=== PATIENT | female | born 1985 | race Caucasian/White ===

== ENCOUNTER → 2023-08-10 13:35 | Outpatient (CLI) | payer OTHER, SELFPAY ==
--- NOTE | ~2023-08-10 | MM_ITS ---
EXAMINATION: MM screening [facility] BI w ovidio HISTORY: Baseline screening mammogram TECHNIQUE: Craniocaudal and mediolateral oblique 3-D tomosynthesis images were obtained and synthetic 2-D images were generated. CAD analysis was submitted and interpreted. COMPARISON: None, baseline BREAST PARENCHYMAL COMPOSITION: There are scattered areas of fibroglandular density. FINDINGS: RIGHT BREAST: No suspicious mass, calcification, or architectural distortion are identified to sugges t malignancy. LEFT BREAST: There is a possible obscured mass in the middle third of the inner breast approximately 6 cm from the nipple. IMPRESSION: 1. Possible left breast mass. 2. Additional mammographic views and possible breast ultrasound are recommended to evaluate a possibl e left breast mass and establish a baseline given that this is the first mammographic examination. BI-RADS Category 0: Incomplete: Needs additional imaging evaluation. Reviewed, dictated and finalized at location A. CARE ATTENDANT IMPRESSION: 1. Possible left breast mass. 2. Additional mammographic views and possible breast ultrasound are recommended to evaluate a possible left breast mass and establish a baseline given that th is is the first mammographic examination. BI-RADS Category 0: Incomplete: Needs additional imaging evaluation.
== END ==
PROVIDERS: PCP Nurse Practitioner; Visit Provider Nurse Practitioner
DX: Z12.31 Encounter for screening mammogram for malignant neoplasm of breast (principal); R92.8 Other abnormal and inconclusive findings on diagnostic imaging of breast
CPT/HCPCS: 77063; 77067

== ENCOUNTER → 2023-08-31 08:32 | Outpatient (CLI) | payer OTHER, SELFPAY ==
--- NOTE | ~2023-08-31 | MMUS_ITS ---
EXAMINATION: MM diagnostic kush LT w oivdio, US breast LT limited HISTORY: Possible left breast mass reported on 08/10/2023 screening mammogram examination TECHNIQUE: Additional 3-D tomosynthesis images of the left breast were performed and synthetic 2-D im ages were generated. CAD analysis was submitted and interpreted. High resolution upper inner quadrant left breast ultrasound was performed. COMPARISON: 08/10/2023 bilateral screening mammogram FINDINGS: MAMMOGRAPHIC FINDINGS: Asymmetric approximately 6 x 9 mm partially circumscribed opacity is suggested in the upper inner christian drant of the left breast. Targeted upper inner quadrant left breast ultrasound examination was perfor med and is reported below. ULTRASOUND: 11:00 5 cm from nipple: Parallel circumscribed approximately 4.5 x 10.5 mm hypoechoic lesion without internal vascularity is noted. There is some posterior shadowing. The circumscribed margins and paral lel orientation and lack of internal vascularity would be suggestive of benign process but the coke worker ior shadowing is of concern. Ultrasound-guided biopsy is therefore recommended. IMPRESSION: 1. Posteriorly shadowing 4.5 x 10.5 mm hypoechoic circumscribed lesion at 11:00 5 cm from nipple 2. Ultrasound-guided biopsy of left 11:00 breast lesion is recommended BI-RADS category 4, suspicious findings. Dr. Olea telephoned the report and ultrasound-guided biopsy recommendation on 08/31/2023 at [address] Sotelo personally through her exchange. Reviewed, dictated and finalized at location A. UTER INFORMATION SYSTEMS INSTRUCTOR IMPRESSION: 1. Posteriorly shadowing 4.5 x 10.5 mm hypoechoic circumscribed lesion at 11:00 5 cm from nipple 2. Ultrasound-guided biopsy of left 11:00 breast lesion is recommended BI-RADS category 4, suspicious findings. Dr. Olea telephoned the report and ultrasound-guided biopsy recommendation on 11/01/[address] Sotelo personally through her exchange.
== END ==
PROVIDERS: PCP Obstetrics & Gynecology Gynecology; Visit Provider Obstetrics & Gynecology Gynecology
DX: R92.8 Other abnormal and inconclusive findings on diagnostic imaging of breast (principal)
CPT/HCPCS: 76642; 77061; 77065; G0279